=== PATIENT | male | born 1990 | race Caucasian/White ===

== ENCOUNTER → 2016-08-21 | Outpatient (CLI) | payer BC | END | disposition home or self-care (01) | LOC: MW.LAB 15:35 | PROVIDERS: ATTEND Nurse Practitioner | DX: R59.9 Enlarged lymph nodes, unspecified (principal) | CPT/HCPCS: 36415; 85025; 86308 ==

== ENCOUNTER 2017-09-13 15:55 | Emergency (ER) | payer BC, OTHER ==
[2017-09-13] MEDS ORDERED: Diphtheria,Pertussis(Acell),Tetanus Vaccine 0.5 ML Syringe IM ONE (15:59)
[2017-09-13] MEDS ORDERED: Bacitracin Oint 1 GM U/D Packet TOP ONE (15:59)
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
[2017-09-13 16:42] LABS: CHLORIDE,CL 103 mmol/L (98-107); SODIUM,NA 138 mmol/L (136-148)
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
== END 2017-09-13 17:20 | disposition home or self-care (01) ==
LOC: MW.ED 15:55
DX: S06.0X1A Concussion with loss of consciousness of 30 minutes or less, initial encounter (principal); S00.81XA Abrasion of other part of head, initial encounter; Y99.0 Civilian activity done for income or pay; W22.8XXA Striking against or struck by other objects, initial encounter; Z23 Encounter for immunization
CPT/HCPCS: 36415; 70450; 70450-26; 70486; 70486-26; 72125; 72125-26; 80053; 85025; 99284-25

== ENCOUNTER 2019-10-01 13:03 | Emergency (ER) | payer BC ==
[2019-10-01] MEDS ORDERED: Sodium Chloride 0.9% 1,000 ML IV ONE (13:20)
[2019-10-01] MEDS ORDERED: LORazepam 2 MG/ML SDV IVPUSH ONE (13:20)
--- NOTE | 2019-10-01 13:22 | EDM.PDOC ---
ED HPI GENERAL MEDICAL PROBLEM - General Chief Complaint: Cardiovascular Problem Stated Complaint: SOB Time Seen by Provider: 10/01/19 13:22 Source of Information: Reports: Patient History Limitations: Reports: No Limitations - History of Present Illness INITIAL COMMENTS - FREE TEXT/NARRATIVE: HISTORY AND PHYSICAL: History of present illness: Patient is a 28-year-old male presents to the ED with complaint of palpitations and shakiness. Patient states he has been having these "episodes" for several months. He states he feels like he may be having a panic attack. He feels shaky , palpitations, and shortness of breath. He states he drinks about 5 shots of hard liquor per day, has not had anything to drink today. He denies any chest pain, cough, fevers, chills. Review of systems: As per history of present illness and below otherwise all systems reviewed and negative. Past medical history: As per history of present illness and as reviewed below otherwise noncontributory. Surgical history: As per history of present illness and as reviewed below otherwise noncontributory. Social history: No reported history of drug or alcohol abuse. Family history: As per history of present illness and as reviewed below otherwise noncontributory. Physical exam: General: Patient sitting comfortably in no acute distress and nontoxic appearing. Patient is shaking on examination. HEENT: Atraumatic, normocephalic, pupils reactive, negative for conjunctival pallor or scleral icterus, mucous membranes moist, throat clear, neck supple, nontender, trachea midline. No meningeal signs. Lungs: Clear to auscultation, breath sounds equal bilaterally, chest nontender. Heart: S1S2, regular, negative for clicks, rubs, or overt murmur. Abdomen: Soft, nondistended, nontender. Negative for masses or hepatosplenomegaly. Negative for costovertebral tenderness. No rigidity, rebound , guarding. Pelvis: Stable nontender. Genitourinary: Deferred. Rectal: Deferred. Extremities: Atraumatic, negative for cords or calf pain. Neurovascular unremarkable. Neuro: Awake, alert, oriented. Cranial nerves II through XII unremarkable. Cerebellum unremarkable. Motor and sensory unremarkable throughout. Exam nonfocal. Notes: Initial EKG poor quality second patient shaking. Patient was given Ativan and his symptoms significantly improved. A second EKG was done which shows normal sinus rhythm with a rate of 99. No ST-T wave changes. Diagnostics: EKG, CBC, CMP, troponin, CXR Therapeutics: 1L NS IV 1mg Ativan IV Prescriptions: Ativan (#3) Impression: Acute anxiety Plan: You may take ativan if needed for panic attack, do not take with alcohol as discussed Follow up with primary care Return to ED as needed as discussed Definitive disposition and diagnosis as appropriate pending reevaluation and review of above. - Related Data Allergies Allergy/AdvReac Type Severity Reaction Status Date / Time No Known Allergies Allergy Verified 10/01/19 13:12 Home Meds: Home Meds LORazepam [Ativan] 1 mg PO ASDIRECTED #3 tablet 10/01/19 [Rx] Past Medical History HEENT History: Reports: None Cardiovascular History: Reports: None Respiratory History: Reports: Asthma Gastrointestinal History: Reports: None Genitourinary History: Reports: None Musculoskeletal History: Reports: None Neurological History: Reports: None Psychiatric History: Reports: None Endocrine/Metabolic History: Reports: None Hematologic History: Reports: None Immunologic History: Reports: None Oncologic (Cancer) History: Reports: None Dermatologic History: Reports: None - Past Surgical History Head Surgeries/Procedures: Reports: None HEENT Surgical History: Reports: Oral Surgery Cardiovascular Surgical History: Reports: None Respiratory Surgical History: Reports: None GI Surgical History: Reports: None Male Surgical History: Reports: None Endocrine Surgical History: Reports: None Neurological Surgical History: Reports: None Musculoskeletal Surgical History: Reports: None Oncologic Surgical History: Reports: None Dermatological Surgical History: Reports: None Social & Family History - Family History Family Medical History: Noncontributory - Caffeine Use Caffeine Use: Reports: Coffee ED ROS GENERAL - Review of Systems Review Of Systems: Comprehensive ROS is negative, except as noted in HPI. ED EXAM, GENERAL - Physical Exam Exam: See Below (see dictation) Course - Vital Signs Last Recorded V/S: Last Vital Signs Temp 96.3 F L 10/01/19 13:08 Pulse 104 H 10/01/19 14:34 Resp 16 10/01/19 14:34 BP 138/84 10/01/19 14:34 Pulse Ox 94 L 10/01/19 14:34 - Orders/Labs/Meds Orders: Active Orders 24 hr Category Date Time Status EKG Documentation Completion [RC] STAT Care 10/01/19 13:12 Active Labs: Laboratory Tests 10/01/19 10/01/19 Range/Units 13:22 13:22 WBC 6.43 (4.0-11.0) K/uL RBC 5.43 (4.50-5.90) M/uL Hgb 17.1 H (13.0-17.0) g/dL Hct 46.9 (38.0-50.0) % MCV 86.4 (80.0-98.0) fL MCH 31.5 (27.0-32.0) pg MCHC 36.5 (31.0-37.0) g/dL RDW Std Deviation 39.1 (28.0-62.0) fl RDW Coeff of Hailey 12 (11.0-15.0) % Plt Count 193 (150-400) K/uL MPV 9.80 (7.40-12.00) fL Neut % (Auto) 47.1 L (48.0-80.0) % Lymph % (Auto) 43.4 H (16.0-40.0) % [place] % (Auto) 7.8 (0.0-15.0) % Eos % (Auto) 1.2 (0.0-7.0) % Baso % (Auto) 0.5 (0.0-1.5) % Neut # (Auto) 3.0 (1.4-5.7) K/uL Lymph # (Auto) 2.8 H (0.6-2.4) K/uL [place] # (Auto) 0.5 (0.0-0.8) K/uL Eos # (Auto) 0.1 (0.0-0.7) K/uL Baso # (Auto) 0.0 (0.0-0.1) K/uL Nucleated RBC % 0.0 /100WBC Nucleated RBCs # 0 K/uL Sodium 136 (136-148) mmol/L Potassium 3.8 (3.5-5.1) mmol/L Chloride 101 (98-107) mmol/L Carbon Dioxide 23.4 (21.0-32.0) mmol/L BUN 11 (7.0-18.0) mg/dL Creatinine 1.1 (0.8-1.3) mg/dL Est Cr Clr Drug Dosing 110.72 mL/min Estimated GFR (MDRD) > 60.0 ml/min Glucose 190 H (74-106) mg/dL Calcium 8.4 L (8.5-10.1) mg/dL Total Bilirubin 1.1 H (0.2-1.0) mg/dL AST 30 (15-37) IU/L ALT 48 (14-63) IU/L Alkaline Phosphatase 80 (46-116) U/L Troponin I < 0.050 (0.000-0.056) ng/mL Total Protein 7.6 (6.4-8.2) g/dL Albumin 4.4 (3.4-5.0) g/dL Globulin 3.2 (2.6-4.0) g/dL Albumin/Globulin Ratio 1.4 (0.9-1.6) Meds: Medications Discontinued Medications Generic Name Dose Route Start Last Admin Trade Name Freq PRN Reason Stop Dose Admin Sodium Chloride 1,000 mls @ 999 mls/hr 10/01/19 13:20 10/01/19 13:30 Normal Saline IV 10/01/19 14:20 999 mls/hr STAT ONE Administration Lorazepam 1 mg 10/01/19 13:20 10/01/19 13:30 Ativan IVPUSH 10/01/19 13:21 1 mg ONETIME ONE Administration Departure - Departure Time of Disposition: 14:24 Disposition: Home, Self-Care 01 Condition: Good Clinical Impression: Anxiety Prescriptions: LORazepam [Ativan] 1 mg PO ASDIRECTED #3 tablet Instructions: Living With Anxiety Referrals: PCP,Unknown [Primary Care Provider] - Forms: ED Department Discharge Additional Instructions: The following information is given to patients seen in the emergency department who are being discharged to home. This information is to outline your options for follow-up care. We provide all patients seen in our emergency department with a follow-up referral. The need for follow-up, as well as the timing and circumstances, are variable depending upon the specifics of your emergency department visit. If you don't have a primary care physician on staff, we will provide you with a referral. We always advise you to contact your personal physician following an emergency department visit to inform them of the circumstance of the visit and for follow-up with them and/or the need for any referrals to a consulting specialist. The emergency department will also refer you to a specialist when appropriate. This referral assures that you have the opportunity for follow-up care with a specialist. All of these measure are taken in an effort to provide you with optimal care, which includes your follow-up. Under all circumstances we always encourage you to contact your private physician who remains a resource for coordinating your care. When calling for follow-up care, please make the office aware that this follow-up is from your recent emergency room visit. If for any reason you are refused follow-up, please contact the [facility] Emergency Department at and asked to speak to the emergency department charge nurse. [facility] Primary Care [address] [place] [address] [id number] [address] [address] You may take ativan if needed for panic attack, do not take with alcohol as discussed Follow up with primary care Return to ED as needed as discussed Sepsis Event Note - Evaluation Sepsis Screening Result: No Definite Risk - Focused Exam Vital Signs: Vital Signs Temp Pulse Resp BP Pulse Ox 10/01/19 14:34 104 H 16 138/84 94 L 10/01/19 13:08 96.3 F L 116 H 20 155/101 H 98 Date Exam was Performed: 10/01/19 Time Exam was Performed: 16:14 - My Orders Last 24 Hours: My Active Orders 10/01/19 13:12 EKG Documentation Completion [RC] STAT - Assessment/Plan Last 24 Hours: My Active Orders 10/01/19 13:12 EKG Documentation Completion [RC] STAT
--- NOTE | 2019-10-01 13:57 | CR ---
Chest: Portable view of the chest was obtained. Comparison: No prior chest imaging is available. Heart size and mediastinum are normal. Lungs are clear with no acute parenchymal change. Bony structures are unremarkable. Impression: 1. Nothing acute is appreciated on portable chest x-ray. Diagnostic code #1 This report was dictated in MDT
[2019-10-01 14:05] LABS: BLOOD UREA NITROGEN,BUN 11 mg/dL (7.0-18.0); CARBON DIOXIDE,CO2 23.4 mmol/L (21.0-32.0); CHLORIDE,CL 101 mmol/L (98-107); GLUCOSE RANDOM 190 mg/dL (74-106); POTASSIUM,K 3.8 mmol/L (3.5-5.1); SODIUM,NA 136 mmol/L (136-148)
== END 2019-10-01 14:42 | disposition home or self-care (01) ==
LOC: MW.ED 13:03
DX: F41.9 Anxiety disorder, unspecified (principal)
CPT/HCPCS: 36415; 71045; 80053; 84484; 85025; 93005; 96374; 99285; J2060; J7030; 99283

== ENCOUNTER 2021-03-02 19:41 | Emergency (ER) | payer BC ==
--- NOTE | 2021-03-02 20:08 | EDM.PDOC ---
ED HPI GENERAL MEDICAL PROBLEM - General Chief Complaint: Respiratory Problem Stated Complaint: INHALED WELL GAS Time Seen by Provider: 03/02/21 19:46 - History of Present Illness INITIAL COMMENTS - FREE TEXT/NARRATIVE: CHIEF COMPLAINT(S): Benzene exposure HISTORY OF PRESENT ILLNESS: This is a 30-year-old man with a past medical history of childhood asthma and anxiety who comes to the emergency department with a chief complaint of benzene exposure. The patient states approximately 3 hours prior to [place] and inhaled some benzene. He states that he was doing fine and then developed some heavy breathing and felt like his airway was burning. He states that it burned for approximately 45 minutes then resolved. He states that on his drive home he started to feel anxious and slightly confused. He denies any chest pain, shortness of breath, abdominal pain, nausea or vomiting. He denies any blurry vision or loss of vision. He states that he think he had an anxiety attack however he was concerned given the exposure so he came to the emergency department. He states that he is currently asymptomatic. REVIEW OF SYSTEMS: Constitutional: Denies fever, chills. Eyes: Denies eye pain Ears, Nose, Mouth, & Throat: Denies earache Cardiovascular: Denies chest pain Respiratory: Positive for heavy breathing and burning when deep breathing Gastrointestinal: Denies Nausea, vomiting, diarrhea, hematochezia. Genitourinary: Denies hematuria Skin:Denies a rash MSK: Denies joint pain Neurological: Positive for dizziness. Denies blurred vision, numbness, tingling, weakness Psychiatric: Positive for anxiety PAST MEDICAL HISTORY: As per history of present illness and as reviewed below otherwise noncontributory. SURGICAL HISTORY: As per history of present illness and as reviewed below otherwise noncontributory. SOCIAL HISTORY: As per history of present illness and as reviewed below otherwise noncontributory. FAMILY HISTORY: As per history of present illness and as reviewed below otherwise noncontributory. EXAMINATION OF ORGAN SYSTEMS/BODY AREAS: Constitutional: Blood pressure is 116/82, heart rate 91, respiratory rate 18 with an oxygen saturation 99% on room air. Temperature 36.4 General: Overall well-appearing man who is in no acute distress Psychiatric: Appropriate mood and affect. Eyes: No scleral icterus or conjunctival erythema no conjunctival injection or erythema. No purulent drainage from the eyes. ENMT: Moist mucous membranes. No pharyngeal erythema no mucosal sloughing or abnormality in the area of the pharynx. Cardiovascular: Regular, rate, and rhythm. No gallops, murmurs, or rubs. Bilateral upper extremity pulses symmetric and intact. No peripheral edema. No JVD. Respiratory: Lungs clear to auscultation bilaterally. No wheezes, rales, or rhonchi. No increased work of breathing. Gastrointestinal: Soft, non-tender, non-distended. Normoactive bowel sounds Genitourinary: No suprapubic tenderness Musculoskeletal: Normal range of motion. Skin: No lesions or abrasions. Neurological: Alert, GCS 15 MEDICAL DECISION MAKING AND COURSE IN THE ED WITH INTERPRETATION/REVIEW OF DIAGNOSTIC STUDIES: This is a 30-year-old man with a past medical history of childhood asthma and anxiety who comes to the emergency department with the benzene exposure who has normal vital signs without any signs of respiratory distress and no overt signs of abnormality on examination. At this time we did contact poison control. Given that the patient was not exposed for a long period of time and given the duration since the exposure to they do not recommend anything further. I did discuss this with the patient. I did discuss that I did provide him with an albuterol inhaler given his childhood asthma and he is to return for any worsening symptoms such as trouble breathing, trouble swallowing or drooling. He was amenable discharge at this time and had no further questions DISPOSITION: The patient was discharged home in stable condition. The patient will follow up with primary care physician in 3 to 5 days for reevaluation CONDITION: Fair PROCEDURES: None FINAL IMPRESSION(S)/DIAGNOSES: 1. Acute chemical inhalation Sedrick Coronado M.D. - Related Data Allergies Allergy/AdvReac Type Severity Reaction Status Date / Time No Known Allergies Allergy Verified 03/02/21 19:53 Home Meds: Home Meds Albuterol Sulfate [Albuterol Sulfate Hfa] 8.5 gm IH Q4H PRN #1 [email or web address] 03/02/21 [Rx] LORazepam [Ativan] 1 mg PO ASDIRECTED PRN 03/02/21 [History] Past Medical History HEENT History: Reports: None Cardiovascular History: Reports: None Respiratory History: Reports: Asthma Gastrointestinal History: Reports: None Genitourinary History: Reports: None Musculoskeletal History: Reports: None Neurological History: Reports: None Psychiatric History: Reports: Anxiety Endocrine/Metabolic History: Reports: None Hematologic History: Reports: None Immunologic History: Reports: None Oncologic (Cancer) History: Reports: None Dermatologic History: Reports: None - Infectious Disease History Infectious Disease History: Reports: Chicken Pox - Past Surgical History Head Surgeries/Procedures: Reports: None HEENT Surgical History: Reports: Oral Surgery Cardiovascular Surgical History: Reports: None Respiratory Surgical History: Reports: None GI Surgical History: Reports: None Male Surgical History: Reports: None Endocrine Surgical History: Reports: None Neurological Surgical History: Reports: None Musculoskeletal Surgical History: Reports: None Oncologic Surgical History: Reports: None Dermatological Surgical History: Reports: None Social & Family History - Family History Family Medical History: No Pertinent Family History - Caffeine Use Caffeine Use: Reports: Coffee - Recreational Drug Use Recreational Drug Use: No ED ROS GENERAL - Review of Systems Review Of Systems: See Below ED EXAM, GENERAL - Physical Exam Exam: See Below Course - Vital Signs Last Recorded V/S: Last Vital Signs Temp 36.4 C 03/02/21 19:46 Pulse 81 03/02/21 20:18 Resp 18 03/02/21 20:18 BP 116/82 03/02/21 19:46 Pulse Ox 98 03/02/21 20:18 Departure - Departure Time of Disposition: 20:07 Disposition: Home, Self-Care 01 Condition: Fair Clinical Impression: Exposure to benzene - Discharge Information *PRESCRIPTION DRUG MONITORING PROGRAM REVIEWED*: No *COPY OF PRESCRIPTION DRUG MONITORING REPORT IN PATIENT KENY: No Prescriptions: Albuterol Sulfate [Albuterol Sulfate Hfa] 8.5 gm IH Q4H PRN #1 [email or web address] PRN Reason: Shortness Of Breath Instructions: Chemical Inhalation Injury, Adult Referrals: PCP,None [Primary Care Provider] - Forms: ED Department Discharge Additional Instructions: You were evaluated today on an emergent basis. At this time in conjunction with contacting poison control given that this was a short exposure there is no further work-up needed. Your oxygen was normal you are not wheezing and there were no other signs of issues with your vital signs. I do recommend that you follow-up with your primary care physician in 3 to 5 days for reevaluation. Please return if you have any worsening symptoms such as worsening chest pain, shortness of breath. I will send you a prescription for albuterol given that she had a prior history of asthma as a child. You can use this as needed for shortness of breath and wheezing. [facility] [address] [place] [address] [facility] [address] [place] [address] The patient is informed of any results of their evaluation and diagnostic workup and all questions are answered. They are given discharge instructions and return precautions. The patient is stable for discharge. The patient states they understand and agree with the plan and that they will return if their symptoms get worse or if they have any new concerns. The following information is given to patients seen in the emergency department who are being discharged to home. This information is to outline your options for follow-up care. We provide all patients seen in our emergency department with a follow-up referral. The need for follow-up, as well as the timing and circumstances, are variable depending upon the specifics of your emergency department visit. If you don't have a primary care physician on staff, we will provide you with a referral. We always advise you to contact your personal physician following an emergency department visit to inform them of the circumstance of the visit and for follow-up with them and/or the need for any referrals to a consulting specialist. The emergency department will also refer you to a specialist when appropriate. This referral assures that you have the opportunity for follow-up care with a specialist. All of these measure are taken in an effort to provide you with optimal care, which includes your follow-up. Under all circumstances we always encourage you to contact your private physician who remains a resource for coordinating your care. When calling for follow-up care, please make the office aware that this follow-up is from your recent emergency room visit. If for any reason you are refused follow-up, please contact the [facility] Emergency Department at and asked to speak to the emergency department charge nurse. Sepsis Event Note (ED) - Evaluation Sepsis Screening Result: No Definite Risk - Focused Exam Vital Signs: Vital Signs Temp Pulse Resp BP Pulse Ox 03/02/21 20:18 81 18 98 03/02/21 19:46 36.4 C 91 18 116/82 99
== END 2021-03-02 20:18 | disposition home or self-care (01) ==
LOC: MW.ED 19:41
DX: T52 Toxic effect of organic solvents (principal)
CPT/HCPCS: 99283

== ENCOUNTER 2022-07-02 20:17 | Emergency (ER) | payer BC ==
[2022-07-02] MEDS ORDERED: Sodium Chloride 0.9% 1,000 ML IV ONE (20:33)
[2022-07-02] MEDS ORDERED: Ketorolac 30 MG/ML SDV IVPUSH ONE (20:33)
[2022-07-02 21:21] LABS: CARBON DIOXIDE,CO2 23.9 mmol/L (21.0-32.0); POTASSIUM,K 3.7 mmol/L (3.5-5.1)
[2022-07-02 21:38] LABS: CORONAVIRUS COVID-19 NAA NEGATIVE (NEGATIVE); INFLUENZA A NAA NEGATIVE (NEGATIVE); INFLUENZA B NAA NEGATIVE (NEGATIVE)
== END 2022-07-02 22:00 | disposition home or self-care (01) ==
LOC: MW.ED 20:17
DX: R51.9 Headache, unspecified (principal); J45.909 Unspecified asthma, uncomplicated; Z20.822 Contact with and (suspected) exposure to COVID-19
CPT/HCPCS: 0240U; 36415; 70450; 80053; 85025; 96361; 96374; 99285; J1885; J7030

== ENCOUNTER 2025-02-18 19:58 | Emergency (ER) | payer BC | END 2025-02-18 21:16 | disposition home or self-care (01) | LOC: MW.ED 19:58 | DX: S30.810A Abrasion of lower back and pelvis, initial encounter (principal); M54.9 Dorsalgia, unspecified; W01.198A Fall on same level from slipping, tripping and stumbling with subsequent striking against other object, initial encounter; Y93.01 Activity, walking, marching and hiking | CPT/HCPCS: 72070; 72100; 99283; A9270 ==